=== PATIENT | female | born 1980 | race Caucasian/White ===

== ENCOUNTER 2018-02-27 13:34 | Emergency (ER) | payer BC ==
[~2018-02-27] VITALS: Ht 170.2 cm; Wt 72.6 kg
[2018-02-27] MEDS ORDERED: SODIUM CHLORIDE 0.9% 1,000 ML IV ONE (14:08)
[2018-02-27] MEDS ORDERED: LORazepam 2MG/ML-1ML VIAL IV ONE (14:15)
[2018-02-27 14:41] VITALS: BP 160/96
== END 2018-02-27 15:38 | disposition home or self-care (01) ==
LOC: EDBD 13:34 → ER 13:34
DX: F41.9 Anxiety disorder, unspecified (principal); F17.210 Nicotine dependence, cigarettes, uncomplicated
CPT/HCPCS: 93005; 94761; 96374; 99284; J2060; 96360